=== PATIENT | female | born 1990 | race Caucasian/White ===

== ENCOUNTER 2017-01-20 17:51 | Emergency (ER) | payer OTHER ==
[2017-01-20 17:59] VITALS: BP 154/93
[2017-01-20] MEDS ORDERED: Sodium Chloride 0.9% 10 ML Syringe FLUSH PRN (18:54)
--- NOTE | 2017-01-20 19:00 | EDM.PDOC ---
ED HPI GENERAL MEDICAL PROBLEM - General Chief Complaint: ENT Problem Stated Complaint: THYROID ISSUE Time Seen by Provider: 01/20/17 18:40 Source of Information: Reports: Patient, Old Records (recent clinic records and labs) History Limitations: Reports: No Limitations - History of Present Illness INITIAL COMMENTS - FREE TEXT/NARRATIVE: 26-year-old female presents for evaluation and treatment of dyspnea and dysphagia. Patient reports that she has been working with Lola Lama PA-C for [facility]. Reports that she feels her thyroid gland is enlarged causing her to have swallowing and respiratory problems. She is not currently on any medications for this. Patient reports that since Thursday she feels her symptoms have worsened. She states that she can't bend her neck without feeling like it is cutting off her air supply. She describes the discomfort like there is "a weight on my tongue". She reports difficulty swallowing and difficulty breathing. Patient reports that she has these symptoms frequently which is what brought her to see Lola Lama initially several months ago. She reports that they are worse since Thursday. Reports that they worsen with her menstrual cycle. She is currently on her menstrual cycle. No chest palpitations, fevers, cough, nausea or vomiting. She denies any sore throat. Denies any recent illnesses. Patient reports that she was recently started on vitamin D. She reports since coming to the ER she feels that her face is more flushed than normal. Review the patient's record show normal thyroid antibodies and a TSH which has been within normal limits. Reports that she had an ultrasound done at the beginning of November. Review this record shows that she has a 6.4mm in diameter hypoechoic nodule within he left lobe. Recommend follow-up in 6 months. patient reports that she is scheduled to see endocrinology in [place] on Thursday. The patient has her 4 children with her in the ER [facility]. 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: Other OB/BYN History: vaginal births - Past Surgical History HEENT Surgical History: Reports: Oral Surgery, Other (See Below) Other HEENT Surgeries/Procedures: foreign object removal from cheek, wisdom teeth removal GI Surgical History: Reports: Appendectomy, Cholecystectomy, Other (See Below) Other GI Surgeries/Procedures: adhesion removal from intestines Social & Family History - Tobacco Use Smoking Status *Q: Never Smoker Second Hand Smoke Exposure: No - Caffeine Use Caffeine Use: Reports: Coffee - Recreational Drug Use Recreational Drug Use: No ED ROS ENT - Review of Systems Review Of Systems: See Below Constitutional: Denies: Fever HEENT: Reports: Other (reports dysphagia; reports neck swelling; feels she cannot bend her neck without cutting off her airway). Denies: Throat Pain Respiratory: Reports: Other (reports dyspnea). Denies: Cough Cardiovascular: Denies: Palpitations ED EXAM, ENT - Physical Exam Exam: See Below Exam Limited By: No Limitations General Appearance: Alert, WD/WN, No Apparent Distress Ears: Normal External Exam Nose: Normal Inspection Mouth/Throat: Normal Inspection, Normal Gums, Normal Lips, Normal Oropharynx, Normal Teeth Head: Atraumatic Neck: Normal Inspection, Supple, Non-Tender, Full Range of Motion, Thyromegaly Respiratory/Chest: No Respiratory Distress, Lungs Clear, Normal Breath Sounds Cardiovascular: Normal Peripheral Pulses, Regular Rate, Rhythm, No Murmur Neurological: Alert, Oriented, Normal Cognition Psychiatric: Normal Affect, Normal Mood Skin: Warm, Dry, Normal Color Course - Vital Signs Last Recorded V/S: Last Vital Signs Temp 36.2 C 01/20/17 17:56 Pulse 77 01/20/17 17:56 Resp 19 01/20/17 17:56 BP 154/93 H 01/20/17 17:56 Pulse Ox 99 01/20/17 17:56 - Orders/Labs/Meds Orders: Active Orders 24 hr Category Date Time Status Peripheral IV Care [RC] . DIRECTED Care 01/20/17 18:54 Active Peripheral IV Insertion Adult [OM.PC] Routine Oth 01/20/17 18:54 Ordered Meds: Medications Discontinued Medications Generic Name Dose Route Start Last Admin Trade Name Freq PRN Reason Stop Dose Admin Iopamidol 100 ml 01/20/17 19:17 Isovue-300 (61%) IVPUSH 01/20/17 19:18 ONETIME ONE Sodium Chloride 10 ml 01/20/17 18:54 Saline Flush FLUSH ASDIRECTED PRN Keep Vein Open Sodium Chloride 10 ml 01/20/17 19:17 Saline Flush FLUSH 01/20/17 19:18 ONETIME ONE - Re-Assessments/Exams Free Text/Narrative Re-Assessment/Exam: 01/20/17 19:17 nursing staff came and inform me that the patient has eloped. She feels that she is waited too long. Nursing staff presented to her room to start her IV for the CT when she informed them that she was upset that she waited so long. She does not feel she is a priority. She states that she is going to "[place] tomorrow where she will be a priority." She left without signing AMA paperwork. Departure - Departure Time of Disposition: 19:18 Disposition: Eloped 07 Condition: Undetermined Clinical Impression: Dysphagia - Discharge Information Referrals: Lola Lama PA [Primary Care Provider] - Forms: ED Department Discharge Additional Instructions: Patient eloped before CT of the soft tissues preformed. Left without signing AMA paperwork. - My Orders Last 24 Hours: My Active Orders 01/20/17 18:54 Peripheral IV Care [RC] . DIRECTED Peripheral IV Insertion Adult [OM.PC] Routine - Assessment/Plan Last 24 Hours: My Active Orders 01/20/17 18:54 Peripheral IV Care [RC] . DIRECTED Peripheral IV Insertion Adult [OM.PC] Routine
[2017-01-20] MEDS ORDERED: Iopamidol 612 MG/ML 100 ML Bottle IVPUSH ONE (19:17)
[2017-01-20] MEDS ORDERED: Sodium Chloride 0.9% 10 ML Syringe FLUSH ONE (19:17)
== END 2017-01-20 19:10 | disposition left against medical advice (07) ==
LOC: JD.ED 17:51
DX: R13.10 Dysphagia, unspecified (principal); Z90.49 Acquired absence of other specified parts of digestive tract; Z98.890 Other specified postprocedural states
CPT/HCPCS: 99283